=== PATIENT | male | born 1935 | race Caucasian/White ===

== ENCOUNTER 2016-08-27 10:43 | Day surgery (SDC) | payer OTHER ==
[2016-08-27 12:15] VITALS: BMI 35.8
[2016-08-27 13:44] VITALS: TEMP 98.2
[2016-08-27 14:04] VITALS: PULSE 65
[2016-08-27 15:00] VITALS: BP 131/77
== END 2016-08-27 14:30 | disposition home or self-care (01) ==
LOC: JASU-ENDO 10:43
PROVIDERS: ATTEND Internal Medicine Gastroenterology
PROC: 0DB68ZX Excision of Stomach, Via Natural or Artificial Opening Endoscopic, Diagnostic (ICD-10-PCS; 2016-08-27)
PROC: 0DB28ZX Excision of Middle Esophagus, Via Natural or Artificial Opening Endoscopic, Diagnostic (ICD-10-PCS; principal; 2016-08-27 11:30)
DX: K31.7 Polyp of stomach and duodenum (principal)
CPT/HCPCS: 88305-TC; 88342-TC